=== PATIENT | male | born 1955 | race African-American/Black ===

== ENCOUNTER 2021-05-13 15:30 | Emergency (ER) | payer OTHER, SELFPAY ==
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
[2021-05-13 16:35] VITALS: BP 147/70; PULSE 82; O2SAT 98
[2021-05-13 16:39] VITALS: BP 152/87; PULSE 79; RESP 18; TEMP 36.9; O2SAT 98; BMI 27.3
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
[2021-05-13 18:26] VITALS: BP 151/82; PULSE 71; RESP 18; TEMP 37.2; O2SAT 99
== END 2021-05-13 20:08 | disposition home or self-care (01) ==
PROVIDERS: Emergency Provider Internal Medicine; PCP Physician Assistant Medical
DX: S79.912A Unspecified injury of left hip, initial encounter (principal); M25.552 Pain in left hip; M16.12 Unilateral primary osteoarthritis, left hip; V43.52XA Car driver injured in collision with other type car in traffic accident, initial encounter; Y93.9 Activity, unspecified; Y92.410 Unspecified street and highway as the place of occurrence of the external cause; Y99.9 Unspecified external cause status; Z79.899 Other long term (current) drug therapy
CPT/HCPCS: 73502; 73700; 99283

== ENCOUNTER → 2021-06-04 09:54 | Outpatient (BNVA) | payer OTHER, SELFPAY | PROVIDERS: PCP Physician Assistant Medical; Visit Provider Physician Assistant | DX: M25.552 Pain in left hip (principal) | CPT/HCPCS: 99202 ==

== ENCOUNTER 2025-01-31 15:07 | Outpatient (AMB) | payer BC, SELFPAY ==
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
--- OUTSIDE RECORDS SUMMARY | 2025-02-01 05:53 | XMS_ITS | Clinical Summary ---
Author Organization [facility] [address] [facility] Address [address] [place] [phone] Phone Care Team Providers Care Education Program Associate Name Role Phone Mic Marrero Primary Care Provider [phone] Allergies No known active allergies Medications acetaminophen (TYLENOL) 500 mg tablet Take 2 tablets (1,000 mg total) by mouth every 8 (eight) hours. 05/22/19 22 Active chlordiazePOX CHRISTIANO-amitripty line (LIMBITROL) 12.5-5 mg per tablet Take 2 tablets by mouth at bedtime. Outside PCP Active propranolol LA (INDERAL LA) 160 mg 24 hr capsule Take 1 capsule (160 mg total) by mouth 1 (one) time each day. Active FREESTYLE LANCETS MISC USE TO TEST BLOOD SUGAR 3 TIMES DAILY 03/07/20 21 Active blood sugar diagnostic (FreeStyle Lite Strips) test strip USE TO TEST BLOOD SUGAR 3 TIMES DAILY 08/16/19 22 Active oxyCODONE-shirley taminophen (PERCOCET) 5-325 mg per tablet Take 1 tablet by mouth every 6 (six) hours if needed for moderate pain or severe pain. Max Daily Amount: 4 tablets 28 tablet 03/08/20 24 Active lisinopril (PRINIVIL,ZES TRIL) 40 mg tablet TAKE 1 TABLET BY MOUTH EVERY DAY 90 tablet 3 05/12/19 25 Active simvastatin (ZOCOR) 40 mg tablet TAKE 1 TABLET BY MOUTH EVERYDAY AT BEDTIME 90 tablet 3 05/12/19 25 Active hydroCHLOROth iazide (HYDRODIURIL) 25 mg tablet TAKE 1 TABLET BY MOUTH EVERY DAY 90 tablet 3 05/12/19 25 Active metFORMIN (GLUCOPHAGE) 500 mg tablet TAKE 2 TABLETS BY MOUTH EVERY DAY WITH BREAKFAST & 2 TABLETS WITH DINNER 360 tablet 1 06/11/19 25 Active insulin glargine (Lantus Solostar U-100 Insulin) 100 unit/mL (3 mL) injection pen Inject 21 Units under the skin at bedtime. 15 mL 5 10/23/19 25 Active Trulicity 3 mg/0.5 mL pen injector injection INJECT 0.5 ML (3 MG) SUBCUTANEOUSLY EVERY 7 DAYS 3 mL 1 01/20/20 25 Active BD Ultra-Fine Short Pen Needle 31 gauge x 5/16 needle USE TO INJECT INSULIN ONCE DAILY 100 each 1 02/01/20 25 Active BD Ultra-Fine Short Pen Needle 31 gauge x 5/16 needle USE TO INJECT INSULIN ONCE DAILY 100 each 1 08/07/19 25 2024 Discontinued Trulicity 3 mg/0.5 mL pen injector injection Inject 0.5 mL (3 mg total) under the skin every 7 (seven) days. 3 mL 12/21/19 25 2024 Discontinued Active Problems Problem Noted Date Diagnosed Date Overweight (BMI 25.0-29.9) 05/21/2021 Controlled type 2 diabetes m ellitus without complication, without long-term current use of insulin ([facility] V24, [facility] V28) 02/11/2018 RO (obstructive sleep apnea) 02/11/2018 Overview (01/21/2024): Supplies through [employer] Ordered by Erica Hyperlipidemia 05/04/2010 Essential hypertension, benign 02/03/2006 Allergic rhinitis 12/16/2005 Migraine with aura 12/16/2005 Overview (01/21/2024): Follows with neurolgoy 6 mth basis (zoila) Immunizations Immunization Administration Dates Next Due H1N1 Inj Preservative Free 03/03/2009 Influenza Quadravalent, MDCK , 0.5ml, preservative free (Flucelvax) 6mo and older 12/21/2019 Influenza trivalent, 0.5mL ( Fluad) 65yo and older 12/02/2023,12/06/2022,12/12/2020 Influenza trivalent, 0.5mL ( Fluzone High-dose) 65yo and older 12/02/2023,12/06/2022,12/12/2020 Influenza trivalent, with pr eservative (Fluzone; Afluria) 6mo and older 11/27/2020,12/15/2017,12/19/2016,01/11,02/10/2013,12/27/2011,03/03/2009 Pfizer (ages 12 & older) Biv alent, COVID-19 01/12/2022 Pneumococcal conjugate 20 va lent (Prevnar 20, PCV 20) 2mo and older 07/01/2022 Pneumococcal polysaccharide 23 valent (Pneumovax 23) 2yo and older 01/11/2021,07/21/2013 Td Tetanus diptheria (Tdvax) 7yo and older 01/11/2021,01/11/2021 Tdap Tetanus diptheria acell ular pertussis (Boostrix; Adacel) 7yo and older 10/31/2010 Zoster recombinant (Shingrix ) 19yo and older 12/03/2023 Surgical History Surgery Date Site/Laterality Comments HERNIA REPAIR 2013 Left PROCEDURE: HISTORICAL HERNIA REPAIR/ING OTHER SURGICAL HISTORY Right PROCEDURE: HISTORICAL ARM SURGERY; COMMENT: elbow surgery TONSILLECTOMY 1959 PROCEDURE: HISTORICAL TONSILLECTOMY MULTIPLE TOOTH EXTRACTIONS PROCEDURE: HISTORICAL DENTAL EXTRACTION COLONOSCOPY 10/08/06 PROCEDURE: HISTORICAL COLONOSCOPY; COMMENT: diverticulosis; repeat in ten years OTHER SURGICAL HISTORY 04/23/2017 PROCEDURE: COLON CA SCRN NOT HI RSK IND; COMMENT: tics and hemorrhoids; repeat in 10 years Medical History Medical History Date Comments Type II or unspecified type diabetes mellitus with unspecified complication, not stated as uncontrolled DX:Type II or unspecified t ype diabetes mellitus with unspecified complication, not stated as uncontrolled Unspecified essential hypertension DX:Unspecified essential hypertension Family History Medical History Relation Name Comments Cataracts Father Breast cancer Mother age 50 Blindness Neg Hx Glaucoma Neg Hx Macular degeneration Neg Hx Strabismus Neg Hx Relation Name Status Comments Father Alive Mother Social History Tobacco Use Types Packs/Day Years Used Date Smoking Tobacco: Former Smokeless Tobacco: Never Tobacco Cessation:Counseling Given: Not Answered Alcohol Use Standard Drinks/Week Comments No 0 (1 standard drink = 0.6 oz pur e alcohol) Housing Instability Answer Date Recorde d Are you worried that in the next 2 months you may not have stable housing? No 07/07/2024 Food Access & Nutrition Answer Date Rec orded Do you have access to a vari ety of food including fruits and vegetables? Yes 07/07/2024 Health Literacy Answer Date Recorded How often do you need to hav e someone help you when you read instructions, pamphlets, or other written material from your doctor or pharmacy? Never 07/07/2024 Caregiver: How often do you need to have someone help you when you read instructions, pamphlets, or other written material from your doctor or pharmacy? Not on file 07/07/2024 Financial Risk Answer Date Recorded How hard is it for you to pa y for the very basics like food, housing, medical care, and air conditioning / heating? Not very hard 07/07/2024 Transportation Answer Date Recorded Has the lack of transportati on kept you from meetings, work, or from getting things needed for daily living? No Has the lack of transportati on kept you from medical appointments or from getting medications? No 07/07/2024 Social Isolation Answer Date Recorded How often do you feel lonely or isolated from th ose around you? Never 07/07/2024 Food Risk Answer Date Recorded Within the past 12 months we worried whether our food would run out before we got money to buy more. Never true 07/07/2024 Within the past 12 months th e food we bought just didn't last and we didn't have money to get more. Never true 07/07/2024 Dependent Care Answer Date Recorded Do you need help finding or paying for care for your loved ones. For example, child care coordinator or elderly care for an older adult? No 07/07/2024 Education Answer Date Recorded Do you think completing more education or training, like finishing a GED, going to college, or learning a trade, would be helpful for you? N/A 07/07/2024 Employment and Income Answer Date Recor ded During the last four weeks, have you been actively looking for work? No 07/07/2024 Living Situation Answer Date Recorded What is your living situation? Unrecognized valu e 07/07/2024 Sex and Gender Information Value Date Recorded Sex Assigned at Not on file Legal Sex Male 11:41 AM EST Gender Identity Not on file Sexual Orientation Not on file Obstetrics History Last Filed Vital Signs Vital Sign Reading Time Taken Comments Blood Pressure 125/81 07/07/2024 7:52 AM EDT Pulse 73 07/07/2024 7:52 AM EDT Temperature 36 C (96.8 F) 07/07/2024 7:52 AM EDT Respiratory Rate 14 07/07/2024 7:52 AM EDT Oxygen Saturation 99% 03/08/2024 3:29 PM EST Inhaled Oxygen Concentration - - Weight 83.6 kg (184 lb 6.4 oz) 07/07/2024 7:52 A M EDT Height 175.3 cm (5' 9 ) 07/07/2024 7:52 AM EDT Body Mass Index 27.23 07/07/2024 7:52 AM EDT Plan of Treatment Upcoming Encounters Date Type Department Care Team (Late st Contact Info) Description 04/04/2025 8:15 AM EST Office Visit Adult Medicine [address] [phone] Mic Marrero, [place] [address] [place] [phone] Health Maintenance Due Date Last Done Comments RSV Immunization Adult Patients (1 - Risk 50-74 years 1-dose series) 2005 Zoster Vaccines (2 of 2) 01/28/2024 12/03/2023 COVID-19 Vaccine ( season) 2024 01/12/2022, 01/14/2021, 07/06/2020, Additional history exists Influenza Vaccine (#1) 2024 , 12/02/2023, 12/06/2022, Additional history exists Diabetes: Blood Sugar Control Test (HGBA1C) 01/06/2025 07/07/2024, 03/08/2024, 12/02/2023, Additional history exists Diabetes: Annual Foot Exam 03/02/2025 03/02/2024 Diabetes: Annual Retina Eye Exam 06/29/2025 06/29/2024, 07/29/2023 Diabetes: Annual Urine Albumin-Creatinine Ratio (uACR) 07/07/2025 07/07/2024, 03/08/2024, 12/02/2023 Diabetes: Annual GFR (Glomerular Filtration Rate) 07/07/2025 07/07/2024, 03/08/2024, 12/02/2023, Additional history exists Falls Risk Assessment 07/07/2025 07/07/2024 Hypertension/CHF/CAD Annual BMP Blood Test 07/07/2025 07/07/2024, 03/08/2024, 12/02/2023, Additional history exists Social Influencers of Health Screening 07/07/2025 07/07/2024 Colorectal Cancer Screening: Colonoscopy 04/23/2027 04/23/2017 Cholesterol Screening (Lipid Panel) 07/07/2029 07/07/2024, 03/08/2024, 12/02/2023, Additional history exists DTaP,Tdap,and Td Vaccines (4 - Td or Tdap) 01/11/2031 01/11/2021, 01/11/2021, 10/31/2010 Pneumococcal Vaccine: 50+ Years Completed 07/01/2022, 01/11/2021, 07/21/2013 Abdominal Aortic Aneurysm (AAA) Screen Completed 12/05/2023, 12/05/2023, 12/05/2023 Hepatitis C Screening Completed 03/08/2024 Depression Screening Completed 07/07/2024 HIB Vaccines Aged Out No longer eligi ble based on patient's age to complete this topic HPV Vaccines Aged Out No longer eligi ble based on patient's age to complete this topic Hepatitis A Vaccines Aged Out No long er eligible based on patient's age to complete this topic Hepatitis B Vaccines Aged Out No long er eligible based on patient's age to complete this topic IPV Vaccines Aged Out No longer eligi ble based on patient's age to complete this topic MMR Vaccines Aged Out No longer eligi ble based on patient's age to complete this topic Meningococcal ACWY Vaccine Aged Out N o longer eligible based on patient's age to complete this topic Meningococcal B Vaccine Aged Out No l onger eligible based on patient's age to complete this topic RSV Immunization Patients Under 20 months Aged Out No longer eligible based on patient's age to complete this topic Varicella Vaccines Aged Out No longer eligible based on patient's age to complete this topic Procedures Procedure Name Priority Date/Time Associated Diagnosis Comments MICROALBUMIN CREATININE URINE RATIO Routine 07/07/2024 8:45 AM EDT Controlled type 2 diabetes mellitus without complication, without long-term current use of insulin ([facility] V24, [facility] V28) Essential hypertension, benign Hyperlipidemia, unspecified hyperlipidemia type RO (obstructive sleep apnea) COMPREHENSIVE METABOLIC PANEL Routine 07/07/2024 8:45 AM EDT Controlled type 2 diabetes mellitus without complication, without long-term current use of insulin ([facility] V24, [facility] V28) Essential hypertension, benign Hyperlipidemia, unspecified hyperlipidemia type RO (obstructive sleep apnea) HEMOGLOBIN A1C Routine 07/07/2024 8:45 AM EDT Controlled type 2 diabetes mellitus without complication, without long-term current use of insulin ([facility] V24, [facility] V28) Essential hypertension, benign Hyperlipidemia, unspecified hyperlipidemia type RO (obstructive sleep apnea) LIPID PANEL WITH REFLEX TO DIRECT LDL Routine 07/07/2024 8:45 AM EDT Controlled type 2 diabetes mellitus without complication, without long-term current use of insulin ([facility] V24, [facility] V28) Essential hypertension, benign Hyperlipidemia, unspecified hyperlipidemia type RO (obstructive sleep apnea) HEPATITIS C ANTIBODY Routine 03/08/2024 4:36 PM EST Controlled type 2 diabetes mellitus without complication, without long-term current use of insulin ([facility] V24, [facility] V28) Essential hypertension, benign Overweight (BMI 25.0-29.9) Hyperlipidemia, unspecified hyperlipidemia type RO (obstructive sleep apnea) Migraine with aura and without status migrainosus, not intractable US ABDOMINAL AORTA REAL TIME SCREEN STUDY AAA Routine 12/05/2023 7:54 AM EDT Encounter for immunization Type 2 diabetes mellitus without complications ([facility] V24, [facility] V28) Essential (primary) hypertension Mixed hyperlipidemia Obstructive sleep apnea (adult) (pediatric) DIABETES EYE EXAM Routine 07/29/2023 HM COLONOSCOPY Routine 04/23/2017 from Last 3 Months or Most Recently Relevant to Health Maintenance Results * Lipid panel with reflex to direct LDL (07/07/2024 8:45 AM EDT) Cholesterol 136 0 - 200 mg/dL LAB CHEMISTRY METHOD 07/07/2024 10:31 AM EDT [facility] Triglycerides 63 0 - 150 mg/dL LAB CHEMISTRY METHOD 07/07/2024 10:31 AM EDT [facility] HDL 54 >=40 mg/dL LAB CHEMISTRY METHOD 07/07/2024 10:31 AM EDT [facility] LDL Calculated 69 0 - 100 mg/dL LAB CHEMISTRY METHOD 07/07/2024 10:31 AM EDT [facility] VLDL Cholesterol King 12.6 mg/dL LAB CHEMISTRY METHOD 07/07/2024 10:31 AM EDT [facility] Non HDL Chol. (LDL+VLDL) 82 <145 mg/dL LAB CHEMISTRY METHOD 07/07/2024 10:31 AM EDT [facility] Chol/HDL Ratio 2.5 0.0 - 4.4 LAB CHEMISTRY METHOD 07/07/2024 10:31 AM EDT [facility] Blood Venous blood specimen / Unknown Venipuncture / Unknown 07/07/2024 8:45 AM EDT 07/07/2024 8:45 AM EDT us Mic COLÓN LAB BLOOD ORDERABLES Polly l Result [facility] [address] [place] [address], * Microalbumin creatinine urine ratio (07/07/2024 8:45 AM EDT) Creatinine, Urine 36.0 mg/dL LAB CHEMISTRY METHOD 07/07/2024 10:47 AM EDT [facility] Microalb, Ur <5.0 0.0 - 29.0 mg/L LAB CHEMISTRY METHOD 07/07/2024 10:47 AM EDT [facility] Microalb/Creat Ratio <14 <30 mg/g creat LAB CHEMISTRY METHOD 07/07/2024 10:47 AM EDT [facility] Urine Urine specimen obtained by clean catch procedure / Unknown Non-blood Collection / Unknown 07/07/2024 8:45 AM EDT 07/07/2024 8:45 AM EDT Mic COLÓN LAB URINE ORDERABLES Polly l Result Performing Organization Address [facility]/ZIP Co de Phone Number [facility] [address] [place] [address], [place] [phone] * (ABNORMAL) Hemoglobin A1c (07/07/2024 8:45 AM EDT) Hemoglobin A1C 7.0(H) <6.5 % LAB CHEMISTRY METHOD 07/07/2024 12:53 PM EDT [facility] Mean Bld Glu Estim. 154 mg/dL LAB CHEMISTRY METHOD 07/07/2024 12:53 PM EDT [facility] Blood Venous blood specimen / Unknown Venipuncture / Unknown 07/07/2024 8:45 AM EDT 07/07/2024 8:45 AM EDT Mic COLÓN LAB BLOOD ORDERABLES Polly l Result [facility] [address] [place] [address], [place] [phone] * (ABNORMAL) Comprehensive metabolic panel (07/07/2024 8:45 AM EDT) Sodium 140 133 - 145 mmol/L LAB CHEMISTRY METHOD 07/07/2024 10:31 AM [facility] Potassium 4.1 3.5 - 5.5 mmol/L LAB CHEMISTRY METHOD 07/07/2024 10:31 AM [facility] Chloride 100 96 - 110 mmol/L LAB CHEMISTRY METHOD 07/07/2024 10:31 AM [facility] CO2 32 21 - 32 mmol/L LAB CHEMISTRY METHOD 07/07/2024 10:31 AM [facility] Anion Gap 8 3 - 11 LAB CHEMISTRY METHOD 07/07/2024 10:31 AM [facility] Glucose 117(H) 70 - 100 mg/dL LAB CHEMISTRY METHOD 07/07/2024 10:31 AM [facility] BUN 15 5 - 25 mg/dL LAB CHEMISTRY METHOD 07/07/2024 10:31 AM [facility] Creatinine 1.18 0.70 - 1.30 mg/dL LAB CHEMISTRY METHOD 07/07/2024 10:31 AM [facility] eGFR 67 >=60 mL/min/1. 73m2 LAB CHEMISTRY METHOD 07/07/2024 10:31 AM [facility] Comment:Calculation based on the Chronic Kidney Disease Epidemiology Collaboration (CKD-EPI) equation refit without adjustment for race. BUN/Creatinine Ratio 12.7 LAB CHEMISTRY METHOD 07/07/2024 10:31 AM [facility] Calcium 9.6 8.5 - 10.5 mg/dL LAB CHEMISTRY METHOD 07/07/2024 10:31 AM [facility] AST (SGOT) 26 10 - 42 unit/L LAB CHEMISTRY METHOD 07/07/2024 10:31 AM [facility] ALT (SGPT) 24 10 - 60 unit/L LAB CHEMISTRY METHOD 07/07/2024 10:31 AM [facility] Alkaline Phosphatase 81 42 - 121 unit/L LAB CHEMISTRY METHOD 07/07/2024 10:31 AM EDT [facility] Total Protein 7.5 6.0 - 8.0 g/dL LAB CHEMISTRY METHOD 07/07/2024 10:31 AM EDT [facility] Albumin 4.3 3.2 - 5.0 g/dL LAB CHEMISTRY METHOD 07/07/2024 10:31 AM EDT [facility] Total Bilirubin 0.6 0.0 - 1.4 mg/dL LAB CHEMISTRY METHOD 07/07/2024 10:31 AM EDT [facility] Blood Venous blood specimen / Unknown Venipuncture / Unknown 07/07/2024 8:45 AM EDT 07/07/2024 8:45 AM EDT Mic COLÓN LAB BLOOD ORDERABLES Polly l Result Performing Organization Address City/[facility]/ZIP Co de Phone Number [facility] [address] [place] [address], [place] [phone] * Hepatitis C antibody (03/08/2024 4:36 PM EST) Hepatitis C Antibody Negative Negative LAB CHEMISTRY METHOD 03/08/2024 7:12 PM EST [facility] Blood Venous blood specimen / Unknown Venipuncture / Unknown 03/08/2024 4:36 PM EST 03/08/2024 4:37 PM EST Mic COLÓN LAB BLOOD ORDERABLES Polly l Result [facility] [address] [place] [address], [place] [phone] * US ABDOMINAL AORTA REAL TIME SCREEN STUDY AAA (12/05/2023 7:54 AM EDT) Anatomical Region Laterality Modality Ultrasound 12/02/2023 3:42 PM EDT Narrative 12/05/2023 11:59 AM EDT EXAM: Ultrasound evaluation of the abdominal aorta. HISTORY: Need for prophylactic vaccination, type 2 diabetes COMPARISON:None Technique: Grayscale and Doppler images of the abdominal aorta and proximal common iliac arteries were obtained. FINDINGS: Proximal abdominal aorta measures 2.6 cm in caliber Mid abdominal aorta measures 1.8 x 1.4 cm in caliber Distal abdominal aorta measures 1.5 x 1.4 cm in caliber Left proximal common iliac artery measures 1.0 cm in caliber Right proximal common iliac artery measures 0.9 cm in caliber. Atherosclerosis of the right iliac. IMPRESSION: IMPRESSION: No evidence of abdominal aortic aneurysm Procedure Note Dandy Haley MD - 12/31/2023 EXAM: Ultrasound evaluation of the abdominal aorta. HISTORY: Need for prophylactic vaccination, type 2 diabetes COMPARISON:None Technique: Grayscale and Doppler images of the abdominal aorta andproximal common iliac arteries were obtained. FINDINGS: Proximal abdominal aorta measures 2.6 cm in caliber Mid abdominal aorta measures 1.8 x 1.4 cm in caliber Distal abdominal aorta measures 1.5 x 1.4 cm in caliber Left proximal common iliac artery measures 1.0 cm in caliber Right proximal common iliac artery measures 0.9 cm in caliber.Atherosclerosis of the right iliac. IMPRESSION: IMPRESSION: No evidence of abdominal aortic aneurysm Mic COLÓN IMG US PROCEDURES Final R esult * Diabetes Eye Exam (07/29/2023) [facility] Diabetes: Annual Retina Eye Exam abstracted Historical Provider HEALTH MAINTENANCE Final Result * Colonoscopy (04/23/2017) Pathologist [facility] Colonoscopy abstracted Anatomical Region Laterality Modality Other Historical Provider HEALTH MAINTENANCE Final Result from Last 3 Months or Most Recently Relevant to Health Maintenance Insurance [facility] Care Teams Education Program Associate Relationship Specialty Start Date End Date Mic Marrero PA [address] [place] [address] PCP - General Internal Medicine 03/08/24
== END 2025-01-31 15:33 | disposition home or self-care (01) ==
LOC: HO.HSM 15:07
PROVIDERS: PCP Physician Assistant Medical; Referring Provider Physician Assistant Medical; Visit Provider Registered Nurse
DX: G43.809 Other migraine, not intractable, without status migrainosus (principal); G44.209 Tension-type headache, unspecified, not intractable; R25.1 Tremor, unspecified; G47.33 Obstructive sleep apnea (adult) (pediatric); Z99.89 Dependence on other enabling machines and devices
CPT/HCPCS: 99214